=== PATIENT | male | born 1985 | race Caucasian/White ===

== ENCOUNTER 2017-12-15 23:14 | Emergency (ER) | payer OTHER ==
[~2017-12-15] VITALS: Ht 182.9 cm; Wt 113.1 kg
[2017-12-15 23:49] LABS: HEMATOCRIT 42.4 % (38.0-50.0); HEMOGLOBIN 15.3 G/DL (12.5-16.6); MCH 32.7 PG (29.0-34.0); MCHC 36.1 G/DL (30.0-36.0); MCV 90.6 FL (86-99); PLATELET COUNT 415 K/uL (156-360); RBC DIS.WIDTH-CV 12.2 % (11.8-14.6); RBC DIS.WIDTH-SD 39.9 % (39-53); RED BLOOD COUNT 4.68 M/uL (4.00-5.50); WHITE BLOOD COUNT 16.4 K/uL (4.1-10.2)
[2017-12-16 00:01] LABS: CHLORIDE 107 mEq/L (99-109); POTASSIUM 3.5 mEq/L (3.7-5.4); SODIUM 144 mEq/L (136-147)
[2017-12-16 00:02] LABS: GLUCOSE 116 mg/dL (70-99)
[2017-12-16 00:06] LABS: GFR ESTIMATE (CALCULATED) > 59 mL/min/ (58.99-99999)
[2017-12-16 00:07] LABS: UREA NITROGEN (BUN) 19 mg/dL (9-23)
[2017-12-16 00:09] LABS: TROP-I INTERPRETATION NEGATIVE; TROPONIN-I < 0.01 ng/mL (0.0-0.30)
[2017-12-16 00:58] LABS: TOTAL PROTEIN 8.3 g/dL (6.4-8.3)
[2017-12-16 01:00] LABS: TOTAL BILIRUBIN 0.8 mg/dL (0.0-1.0)
[2017-12-16 01:01] LABS: ALKALINE PHOSPHATASE 78 IU/L (3-129)
[2017-12-16 01:03] LABS: AST (GOT) 30 IU/L (2-34); DIRECT BILIRUBIN 0.3 mg/dL (0.0-0.3)
[2017-12-16 01:04] LABS: ALT (GPT) 87 IU/L (3-49); LIPASE 23 U/L (1.0-51.0)
[2017-12-16 01:10] LABS: APPEARANCE CLEAR ((CLEAR)); BILIRUBIN NEGATIVE; BLOOD NEGATIVE; COLOR YELLOW ((YELLOW)); GLUCOSE (STRIP) NEGATIVE; KETONES NEGATIVE; LEUKOCYTES NEGATIVE; NITRITE NEGATIVE; PROTEIN (STRIP) 100; SPECIFIC GRAVITY 1.028 (1.000-1.030); UROBILINOGEN 0.2 MG/DL (0.2-1.0)
[2017-12-16 01:13] LABS: BACTERIA NONE SEEN /HPF; EPITHELIAL CELLS NONE SEEN /HPF; MUCUS TRACE /LPF; RED BLOOD CELLS 0-5 /HPF (0-5); UCUL ADDED? NO; WHITE BLOOD CELLS 0-5 /HPF (0-5)
[2017-12-16] MEDS ORDERED: BENTYL20 MG PO (01:28)
[2017-12-16] MEDS ORDERED: PROMETHAZINE HC25 M1 PO (01:28)
[2017-12-16] MEDS ORDERED: PHENERGAN25 MG PR (01:28)
[2017-12-16 01:44] VITALS: BP 134/89
== END 2017-12-16 01:45 | disposition home or self-care (01) ==
LOC: EME 23:14
DX: R10.9 Unspecified abdominal pain (principal); R11.2 Nausea with vomiting, unspecified; R19.7 Diarrhea, unspecified; R03.0 Elevated blood-pressure reading, without diagnosis of hypertension; R20.2 Paresthesia of skin; R68.83 Chills (without fever); I45.10 Unspecified right bundle-branch block
CPT/HCPCS: 71046; 74176; 80048; 80076; 81003; 83690; 84484; 85027; 93005; 99281; 99285; J2405; J7030